=== PATIENT | female | born 1975 | race American Indian/Alaskan Native ===

== ENCOUNTER 2017-12-31 21:39 | Emergency (ER) | payer MEDICAID ==
[2017-12-31 21:43] VITALS: BP 116/81
[2017-12-31 23:00] LABS: Bilirubin,Urine NEG (Negative); Blood,Urine NEG (Negative); Color,Urine Yellow (Yellow); Mucus,Urine FEW /HPF; Protein,Urine <15 mg/dL mg/dL (Negative); Urobilinogen,Urine < 2.0 mg/dL (<2.0)
[2017-12-31 23:21] LABS: HCG Qualitative,Urine Negative (Negative)
--- NOTE | 2018-01-01 02:34 | XRay Report ---
FINAL REPORT PROCEDURE: XR SPINE LUMBOSACRAL 2-3V TECHNIQUE: Lumbar spine radiographs, frontal and lateral views. CPT 44743 HISTORY: low back pain, fall COMPARISON: No prior studies are available for comparison. FINDINGS: Alignment: There is scoliosis of the lumbar spine with convexity to the right. There is no malalignment.. Vertebral body heights/Disk spaces: Normal . Fracture(s): None . Facets: Normal . Bone mineralization: Normal . IMPRESSION: There is no fracture or malalignment.
[2018-01-01] MEDS ORDERED: TORADOL IM ONE (02:39)
[2018-01-01] MEDS ORDERED: DECADRON IM ONE (02:39)
--- NOTE | 2018-01-01 02:42 | Emergency Department Report ---
ED Back Pain/Injury HPI - General Chief Complaint: Back Pain/Injury Stated Complaint: BACK PAIN,NAUSEA Time Seen by Provider: 01/01/18 01:27 Source: patient Limitations: No Limitations - History of Present Illness Initial Comments: This is a 42 y.o. female that presents with low back pain and nausea that started today. Nausea has currently resolved. Reports pain as 7/10 on pain scale and worse with sitting and relieved with standing. States pain radiates down right leg intermittently. She is currently only having pain in bilateral lower back. Denies recent injury. States she fell down front porch steps 1 month ago but felt fine until yesterday. Denies numbness, tingling, swelling, redness, or difficulty/change in voiding. MD Complaint: back pain -: days(s) (1) Similar Symptoms Previously: No Place: home Radiation: right leg Severity: moderate Severity scale (0 -10): 7 Quality: sharp, aching Consistency: constant Improves With: walking Worsens With: supine, sitting upright Associated Symptoms: nausea/vomiting (resolved). denies: confusion, weakness, chest pain, numbness, difficulty walking, cough, diaphoresis, incontinence, fever/chills, constipation, headaches, abdominal pain, loss of appetite, rash, seizure, shortness of breath, syncope Treatments Prior to Arrival: NSAIDS (tylenol) - Related Data Previous Rx's Medication Instructions Recorded Last Taken Type Acetaminophen/Codeine [Tylenol 1 tab PO Q6H PRN #15 tab 01/01/18 Unknown Rx /Codeine # 3 tab] Cyclobenzaprine HCl [Flexeril 5 MG 5 mg PO TID #20 tab 01/01/18 Unknown Rx TAB] Allergies Allergy/AdvReac Type Severity Reaction Status Date / Time No Known Allergies Allergy Unverified 12/31/17 21:47 ED Review of Systems ROS: Stated complaint: BACK PAIN,NAUSEA Other details as noted in HPI Constitutional: denies: chills, fever Respiratory: denies: cough, shortness of breath, wheezing Cardiovascular: denies: chest pain, palpitations Gastrointestinal: nausea. denies: abdominal pain, vomiting, diarrhea Musculoskeletal: back pain (low back pain bilaterally). denies: joint swelling , arthralgia Skin: denies: rash, lesions Neurological: denies: headache, weakness, paresthesias ED Past Medical Hx - Past Medical History stomach ulcer ED Back Pain Physical Exam - Exam General: Vital signs noted. No distress. Alert and acting appropriately. Back/Abdomen: Yes Sacroiliac Tenderness, Yes Flank Tenderness (right ), No Abdominal Tenderness, No Perithoracic Tenderness, No Perilumbar Tenderness, No Straight Leg Raise Pain Neuro: Yes Normal Sensation, Yes Normal DTR's, Yes Normal Gait, No Motor Weakness ED Course Vital Signs 12/31/17 12/31/17 21:39 21:44 Temperature 98.4 F 98.4 F Pulse Rate 94 H 83 Respiratory 18 17 Rate Blood Pressure 116/81 116/81 O2 Sat by Pulse 100 99 Oximetry Ed Back Pain Tests - Tests Tests: Normal X Rays ED Medical Decision Making - Radiology Data Radiology results: report reviewed L-spine There is no fracture or malalignment. - Medical Decision Making This is a 42 y.o. female that presents with low back pain that started yesterday w/o injury. Patient is stable and examined by me. Obtained UA, HCG, normal. Xray of L-Spine obtained and normal exam. No acute signs of distress noted. Vitals stable. Discussed plan to start amlodipine and HCTZ with patient. Patient agrees to ED plan of care. Discharged home with cyclobenzaprine and tylenol 3. Follow up with PCP in 2-3 days. Critical care attestation.: If time is entered above; I have spent that time in minutes in the direct care of this critically ill patient, excluding procedure time. ED Disposition Clinical Impression: Strain of muscle, fascia and tendon of lower back, initial encounter Low back pain Qualifiers: Chronicity: acute Back pain laterality: bilateral Sciatica presence: without sciatica Qualified Code(s): M54.5 - Low back pain Disposition: - TO HOME OR SELFCARE Is pt being admited?: No Does the pt Need Aspirin: No Condition: Stable Instructions: Muscle Strain (ED), Acute Low Back Pain (ED) Additional Instructions: Rest Use ice or heat on affected area for 20 minutes and off for 2 hours. Take pain medication as needed for pain. Don't drive or operate heavy machinery while taking muscle relaxers because they may cause drowsiness. Follow up with Primary Care Provider in 2-3 days. Prescriptions: Acetaminophen/Codeine [Tylenol /Codeine # 3 tab] 1 tab PO Q6H PRN #15 tab PRN Reason: Pain Cyclobenzaprine HCl [Flexeril 5 MG TAB] 5 mg PO TID #20 tab Referrals: [facility] [Outside] - 3-5 Days [facility] [Outside] - 3-5 Days [facility] [[place]] - 3-5 Days Time of Disposition: 02:44 Print Language: NEPALI
== END 2018-01-01 03:05 | disposition home or self-care (01) ==
LOC: ED 21:39
DX: S39.012A Strain of muscle, fascia and tendon of lower back, initial encounter (principal); X58.XXXA Exposure to other specified factors, initial encounter; Y93.B2 Activity, push-ups, pull-ups, sit-ups; Y92.89 Other specified places as the place of occurrence of the external cause; Y99.8 Other external cause status
CPT/HCPCS: 72100; 81001; 81025; 96372; 99283; J1100; J1885